=== PATIENT | male | born 1940 | race Caucasian/White ===

== ENCOUNTER → 2016-12-24 | Day surgery (SDC) | payer MEDICARE, BC ==
[~2016-12-24] VITALS: Ht 180.3 cm; Wt 94.3 kg
[~2016-12-24] MED LIST: ALEVE220 MG PO; DEXILANT60 MG PO; LOSARTAN-HCTZ1 EACH PO; MECLIZINE HCL12.5 MG PO; OMEPRAZOLE40 MG PO; PAIN RELIEVER500 M1 PO; TRANXENE T-TAB7.5 MG PO
--- NOTE | ~2016-12-24 | OR ---
PATIENT'S NAME: ELA MIMS [facility] AGE: 76 Y [address] ROOM: [place] [address] LOCATION: [facility] – [place] ADMIT DATE: 12/24/2016 OR/Procedure Report DISCHARGE DATE: FAMILY PHYSICIAN: PELON ARDON MD ATTENDING PHYSICIAN: Enoc Chaney SURGEON: Enoc Chaney MD AIRPLANE COVERER: DATE OF PROCEDURE: 12/24/2016 PREOPERATIVE DIAGNOSIS: History of bladder cancer. POSTOPERATIVE DIAGNOSIS: History of bladder cancer. PROCEDURE PERFORMED: Cystoscopy, bladder biopsy with fulguration. ANESTHESIA: MAC. COMPLICATIONS: None. 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 The patient underwent a 6-week course of intravesical BCG. He now presents for followup cystoscopy and biopsy. DETAILS OF PROCEDURE: After informed consent obtained, the patient was taken to the operating room. A MAC anesthetic was applied and he was placed in dorsal lithotomy position. The groin area was prepped and draped in normal sterile fashion. Cystoscope was introduced into the urethra and bladder without difficulty. The patient was noted to have significant prostatic enlargement and also was noted to have trabeculations present. No obvious lesions were noted, so random biopsies were taken at 2 sites and then fulgurated. The bladder was then empty and the procedure terminated. The patient tolerated the procedure well, was transferred to recovery room in good condition. MD KIKO BURNETTE/diane /[id number] PATIENT'S NAME: ELA MIMS [facility] AGE: 76 Y [address] ROOM: [place] [address] LOCATION: [facility] [place] ADMIT DATE: 12/24/2016 OR/Procedure Report DISCHARGE DATE: FAMILY PHYSICIAN: PELON ARDON MD ATTENDING PHYSICIAN: Enoc Chaney CC: Pelon Ardon MD d: 12/24/16 1324 t: 01/05/17 1236, OPERATIVE SUMMARY
[2016-12-24 07:34] LABS: HEMATOCRIT 42.1 % (37.0-53.0); HEMOGLOBIN 12.7 g/dL (11.0-16.0); MCH 22.3 pg (27.0-34.0); MCHC 30.2 gm/dL (32.0-36.5); MPV 11.8 fl (9.4-12.4); PLATELET COUNT 157 K/uL (150-450); RBC 5.69 M/uL (3.50-5.50); WBC 7.3 K/uL (4.0-11.0)
[2016-12-24 07:35] LABS: RDW-CV 15.8 % (11.9-14.6)
[2016-12-24 07:49] LABS: ALBUMIN 3.5 gm/dL (3.5-5.0); ALK PHOS 96 IU/L (33-138); ALT 25 IU/L (12-78); ANION GAP 10.9 (10.0-19.0); AST 18 IU/L (10-40); BLOOD UREA NITROGEN 18 mg/dL (6-24); CALCIUM 8.7 mg/dL (8.5-10.5); CHLORIDE 106 mMol/L (96-110); CO2 28 mMol/L (22-32); CREATININE 1.1 mg/dL (0.6-1.3); ESTIMATED GFR (MDRD EQUATION) > 60; POTASSIUM 3.9 mMol/L (3.7-5.1); SODIUM 141 mMol/L (135-145); TOTAL BILIRUBIN 0.4 mg/dL (0.0-1.5); TOTAL PROTEIN 6.8 g/dL (6.0-8.4)
[2016-12-24 08:16] LABS: ABSOLUTE NEUTROPHIL CT (ANC) 2.3 K/uL (1.4-9.0); LYMPHOCYTE # 3.8 K/uL (0.8-4.0); LYMPHOCYTE % 52 %; MONOCYTE # 0.9 K/uL (0.0-1.0); SEGMENTED NEUTROPHIL # 2.3 K/uL (1.4-9.0); SEGMENTED NEUTROPHIL % 32 %
== END | disposition disaster alternative care site (69) ==
LOC: GPOC 12-12 10:00 → GSDC 07:05 → GPOC 10:00
PROVIDERS: Urology
PROC: 0TBB8ZX Excision of Bladder, Via Natural or Artificial Opening Endoscopic, Diagnostic (ICD-10-PCS; principal; 2016-12-24)
DX: N30.20 Other chronic cystitis without hematuria (principal); N32.89 Other specified disorders of bladder; I10 Essential (primary) hypertension; M19.90 Unspecified osteoarthritis, unspecified site; K21.9 Gastro-esophageal reflux disease without esophagitis; F41.9 Anxiety disorder, unspecified; Z85.51 Personal history of malignant neoplasm of bladder; Z88.2 Allergy status to sulfonamides; Z98.1 Arthrodesis status; Z98.890 Other specified postprocedural states
CPT/HCPCS: J1956; J2405; J7030